=== PATIENT | female | born 1950 | race Caucasian/White ===

== ENCOUNTER 2016-12-12 09:17 | Emergency (ER) | payer BC ==
[~2016-12-12] VITALS: Ht 175.3 cm; Wt 132.9 kg
[~2016-12-12 09:17] MED LIST: CELEXA40 MG PO; COUMADIN,JANTOV10 MG PO; COUMADIN,JANTOVE1 MG PO; COUMADIN,JANTOVE5 MG PO; DIOVAN PO; DOXYCYCLINE HY100 MG PO; IMODIUM MS REL1 EACH PO; LEXAPRO10 MG PO; LOTREL 10/21 CAPSULE PO; PHENERGAN-CODE120 ML PO; PREDNISONE10 MG PO; VICODIN ES 71 TABLET PO; ZOFRAN4 MG PO
[2016-12-12 10:19] LABS: EOSINOPHIL COUNT 0.2 K/uL (0-0.3); HEMATOCRIT 36.7 % (36.0-46.0); IMMATURE GRANULOCYTE (%) 0.2 % (0.0-0.7); INSTRUMENT ABS NEUTROPHIL CT 2.4 K/uL; LYMPHOCYTE COUNT 1.4 K/uL (1.0-2.8); MCH 27.8 PG (29.0-34.0); MCHC 33.2 G/DL (30.0-36.0); MCV 83.6 FL (83-99); MONOCYTE (%) 7.3 % (3-12); MONOCYTE COUNT 0.3 K/uL (0-0.8); NEUTROPHIL (%) 55.9 % (45-76); NEUTROPHIL COUNT 2.4 K/uL (1.8-6.4); PLATELET COUNT 207 K/uL (156-360); RBC DIS.WIDTH-CV 14.3 % (11.8-14.6); RBC DIS.WIDTH-SD 43.8 % (39-53); RED BLOOD COUNT 4.39 M/uL (3.80-5.20); WHITE BLOOD COUNT 4.2 K/uL (4.1-10.2)
[2016-12-12 10:29] LABS: CHLORIDE 109 mEq/L (99-109); POTASSIUM 3.4 mEq/L (3.7-5.4); SODIUM 143 mEq/L (136-147)
[2016-12-12 10:31] LABS: GLUCOSE 118 mg/dL (70-99)
[2016-12-12 10:32] LABS: ANION GAP 9 MEQ/L (2-14)
[2016-12-12 10:35] LABS: GFR ESTIMATE (CALCULATED) 53 mL/min/
[2016-12-12 10:36] LABS: UREA NITROGEN (BUN) 14 mg/dL (9-23)
[2016-12-12 10:43] LABS: PROTHROMBIN TIME 53.2 SEC (10.2-12.9)
[2016-12-12 10:46] LABS: INTER. NORMALIZED RATIO 4.5
[2016-12-12 12:53] VITALS: BP 122/70
== END 2016-12-12 12:53 | disposition home or self-care (01) ==
LOC: EME 09:17
PROVIDERS: Emergency Medicine
DX: R51 Headache (principal); R11.0 Nausea; D68.9 Coagulation defect, unspecified; I10 Essential (primary) hypertension; Z79.01 Long term (current) use of anticoagulants; Z95.2 Presence of prosthetic heart valve; Z88.6 Allergy status to analgesic agent
CPT/HCPCS: 70450; 71010; 80048; 85025; 85610; 99281; 99284

== ENCOUNTER 2017-06-02 08:57 | Emergency (ER) | payer BC ==
[~2017-06-02] VITALS: Ht 165.1 cm; Wt 133.0 kg
[2017-06-02] MEDS ORDERED: VENTOLIN HFA18 GM IH (11:34)
[2017-06-02 11:53] VITALS: BP 109/70
== END 2017-06-02 12:19 | disposition home or self-care (01) ==
LOC: EME 08:57
PROVIDERS: Emergency Medicine
DX: J10.1 Influenza due to other identified influenza virus with other respiratory manifestations (principal); Z95.2 Presence of prosthetic heart valve; Z79.01 Long term (current) use of anticoagulants; I10 Essential (primary) hypertension; F32.9 Major depressive disorder, single episode, unspecified; Z88.5 Allergy status to narcotic agent
CPT/HCPCS: 71046; 87502; 94640; 99281; 99284